=== PATIENT | female | born 1955 | race Two or more races ===

== ENCOUNTER 2019-04-13 13:18 | Emergency (ER) ==
[~2019-04-13] VITALS: Ht 152.4 cm; Wt 80.0 kg
--- NOTE | 2019-04-13 13:23 | NUR ---
NA X 1 "IN BATHROOM"
[2019-04-13 14:13] LABS: BASOPHILS # (AUTO) 0.03 x10^3/uL (0-0.1); BASOPHILS % (AUTO) 0 % (0-1); EOSINOPHILS # (AUTO) 0.11 x10^3/uL (0-0.4); EOSINOPHILS % (AUTO) 1 % (1-7); LYMPHOCYTES % (AUTO) 30 % (22-44); MD NO; MEAN CORPUSCULAR HEMOGLOBIN 32.2 pg (27.0-34.8); MEAN CORPUSCULAR VOLUME 97.6 fL (80-100); MEAN PLATELET VOLUME 8.5 fL (7.4-10.4); MONOCYTES % (AUTO) 5 % (2-9); NEUTROPHILS % (AUTO) 64 % (42-75); PLATELET COUNT 334 x10^3/uL (130-400); RED BLOOD COUNT 4.82 x10^6/uL (3.82-5.3); RED CELL DISTRIBUTION WIDTH 13.1 % (9.6-15.2)
[2019-04-13 14:31] LABS: ALBUMIN 3.5 g/dL (3.4-5.0); ANION GAP 10 mmol/L (5-15); CALCIUM 9.3 mg/dL (8.5-10.1); CHLORIDE 105 mmol/L (98-107)
--- NOTE | 2019-04-13 14:32 | NUR ---
FIRST CONTACT WITH PT. PT'S FAMILY MEMBER STATES "HER BLOOD PRESSURE IS HIGH AND WHEN SHE STANDS UP SHE FEELS DIZZY." ALL SX RESOLVED AT THIS TIME. PT DENIES DAVID/DZY/PALPITATION. PT'S AOX4. RESPS EVEN AND UNLABORED. BP/SPO2 MONITORS IN PLACE. CALL LIGHT WITHIN REACH. FAMILY AT BEDSIDE AT THIS TIME.
--- NOTE | 2019-04-13 14:34 | NUR ---
PT'S BP IS 128/75 AT THIS TIME. EDMD NOTIFIED. MED HOLD PER EDMD VERBAL ORDER D/T NORMAL BP.
[2019-04-13 14:36] LABS: CREATININE 0.71 mg/dL (0.55-1.02); TROPONIN I < 0.015 ng/mL (0.000-0.045)
[2019-04-13] MEDS ORDERED: POTASSIUM CHLORIDE 20 MEQ TAB.ER.PRT PO ONE (15:30)
[2019-04-13 15:31] VITALS: BP 145/82
[2019-04-13] MEDS ORDERED: POTASSIUM CHLORIDE 20 MEQ TAB.ER.PRT ONE (15:35)
--- NOTE | 2019-04-13 15:38 | NUR ---
PT MEDICATED PER EMAR. PT TOLERATED WELL.
--- NOTE | 2019-04-13 16:19 | NUR ---
Patient and pt's family member given discharge instructions and they have confirmed that they understand the instructions. Patient ambulatory with steady gait.
== END 2019-04-13 16:20 | disposition home or self-care (01) ==
LOC: ED 15:16
DX: I10 Essential (primary) hypertension (principal); R42 Dizziness and giddiness; E87.6 Hypokalemia
CPT/HCPCS: 36415; 71045; 80048; 82040; 83880; 84484; 85025; 93005; 99284